=== PATIENT | female | born 1990 | race Two or more races ===

== ENCOUNTER 2018-01-18 21:50 | Emergency (ER) | payer OTHER, BC ==
[2018-01-18 22:51] VITALS: BMI 25.7
[2018-01-18 23:44] LABS: BASO % 0.4 % (0.0-2.0); EOS # 0.2 K/uL (0.0-0.7); EOS % 1.4 % (0.0-4.0); HEMOGLOBIN 11.3 g/dL (11.0-16.0); LYMPH # 1.3 K/uL (1.0-4.3); LYMPH % 12.4 % (20.0-40.0); MEAN CELL VOLUME 81.6 fL (81.0-99.0); MEAN CORPUSCULAR HGB CONC 34.3 g/dL (33.0-37.0); MEAN PLATELET VOLUME 7.7 fL (7.2-11.7); MONO # 0.8 K/uL (0.0-0.8); MONO % 7.2 % (0.0-10.0); NEUT # 8.4 K/uL (1.8-7.0); NEUT % 78.6 % (50.0-75.0); RBC 4.03 Mil/uL (3.80-5.20); RED CELL DISTRIBUTION WIDTH 12.7 % (11.5-14.5); WHITE BLOOD COUNT 10.7 K/uL (4.8-10.8)
[2018-01-18 23:50] LABS: SQUAMOUS EPITHIAL 15 /hpf (0-5); URINE BACTERIA FEW (<OCC); URINE BILIRUBIN NEGATIVE (NEGATIVE); URINE BLOOD 1+ (NEGATIVE); URINE CLARITY Hazy (Clear); URINE COLOR Yellow (YELLOW); URINE GLUCOSE (UA) NORMAL (Normal); URINE LEUKOCYTE ESTERASE 1+ Leu/uL (Negative); URINE PROTEIN NEGATIVE (NEGATIVE)
[2018-01-18 23:59] LABS: ALB/GLOB RATIO 1.2 (1.0-2.1); ALBUMIN 3.5 g/dL (3.5-5.0); ALT/SGPT 29 U/L (9-52); AST/SGOT 23 U/L (14-36); BLOOD UREA NITROGEN 9 mg/dL (7-17); CALCIUM 9.2 mg/dl (8.6-10.4); GFR AFRICAN-AMERICAN > 60; GFR NON-AFRICAN AMERICAN > 60
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
[2018-01-19 13:16] VITALS: BP 110/66; PULSE 78; RESP 18; TEMP 97.6
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
== END 2018-01-19 07:00 | disposition home or self-care (01) ==
LOC: C.EROB 21:50
DX: Z04.1 Encounter for examination and observation following transport accident (principal); O26.892 Other specified pregnancy related conditions, second trimester; Z3A.28 28 weeks gestation of pregnancy

== ENCOUNTER 2018-02-01 14:56 | Emergency (ER) | payer BC, OTHER ==
[2018-02-01 14:13] VITALS: BMI 25.7
[2018-02-01] MEDS ORDERED: Lactated Ringer's 1,000 ML IV ONE (15:32)
[2018-02-01] MEDS ORDERED: Ondansetron Hcl 2 mg/2.5 ml Oral Sol PO STA (15:52)
[2018-02-01 16:01] LABS: BASO % 0.4 % (0.0-2.0); EOS # 0.1 K/uL (0.0-0.7); EOS % 0.8 % (0.0-4.0); HEMOGLOBIN 11.9 g/dL (11.0-16.0); LYMPH % 9.8 % (20.0-40.0); MEAN CELL VOLUME 81.6 fL (81.0-99.0); MEAN CORPUSCULAR HEMOGLOBIN 27.5 pg (27.0-31.0); MEAN CORPUSCULAR HGB CONC 33.7 g/dL (33.0-37.0); MEAN PLATELET VOLUME 7.6 fL (7.2-11.7); MONO # 0.6 K/uL (0.0-0.8); MONO % 5.8 % (0.0-10.0); NEUT # 8.7 K/uL (1.8-7.0); NEUT % 83.2 % (50.0-75.0); NRBC % 0.1 % (0.0-2.0); PLATELET COUNT 207 K/uL (130-400); RBC 4.34 Mil/uL (3.80-5.20); RED CELL DISTRIBUTION WIDTH 12.7 % (11.5-14.5); WHITE BLOOD COUNT 10.5 K/uL (4.8-10.8)
[2018-02-01 16:04] LABS: SQUAMOUS EPITHIAL 4 /hpf (0-5); URINE BACTERIA RARE (<OCC); URINE BILIRUBIN NEGATIVE (NEGATIVE); URINE BLOOD NEGATIVE (NEGATIVE); URINE CLARITY Hazy (Clear); URINE COLOR Yellow (YELLOW); URINE GLUCOSE (UA) NORMAL (Normal); URINE LEUKOCYTE ESTERASE NEG Leu/uL (Negative); URINE PROTEIN NEGATIVE (NEGATIVE); URINE UROBILINOGEN NORMAL mg/dL (0.2-1.0)
[2018-02-01 16:21] LABS: ALB/GLOB RATIO 1.2 (1.0-2.1); ALBUMIN 3.6 g/dL (3.5-5.0); ALT/SGPT 30 U/L (9-52); AST/SGOT 22 U/L (14-36); BLOOD UREA NITROGEN 7 mg/dL (7-17); CALCIUM 8.6 mg/dl (8.6-10.4); GFR AFRICAN-AMERICAN > 60; GFR NON-AFRICAN AMERICAN > 60
[2018-02-01 17:06] LABS: LYMPHOCYTE 8 % (20-40); MONOCYTE 2 % (0-10); NEUTROPHIL 90 % (50-75); PLATELET ESTIMATE NORMAL (NORMAL); TOTAL CELLS COUNTED 100
--- NOTE | 2018-02-01 19:16 | OBHP ---
Datetime: 02/01/2018 19:05 IP Adm Impression: , intrauterine IP Chief Complaint Other: Pelvic Pain IP Admit Plan: Discharge home Admit Comment, IP Provider: 27 yo female G1 with an IUP at 31.5 weeks and presented with c/o of pelv ic pain, not feeling good and vomiting since this AM Denies LOF, Vag bleeding, urinery complaints other than cystitis symptoms Drinks little to no water Labs ordered with US IV of LR hydration, Zofran and Brethine x 3 doses ordered Pelvic Type - PN: Adequate Extremities - PN: Normal Abdomen - PN: Normal Back - PN: Normal Breast - PN: Not Done Lungs - PN: Normal Heart - PN: Normal Thyroid - PN: Normal Neurologic - PN: Normal HEENT - PN: Normal General - PN: Normal Presentation-Admit: Vertex FHR - Baseline A Provider: 120 Membranes, Provider: Intact Contraction Comments Provider: Q3-4 mins Gestation - Est Wks by US: 31.5 EGA AdmitDate IP: 31.5 Vital Signs Provider: Reviewed IP Chief Complaint: Other NICHD Variability Prov Fetus A: Moderate 6-25bpm NICHD Accel Fetus A IP Provider: 15X15 NICHD Decel Fetus A IP Provider: None Dilatation, Provider: 0 Effacement, Provider: 0 Station, Provider: -3 Genitourinary Exam: Normal DTRs - PN: Normal
--- NOTE | 2018-02-01 19:23 | OBDCSUM ---
Datetime: 02/01/2018 19:16 Discharged to, Provider: Home Follow up at, Provider: Clinic Disch Instr Activity: Bedrest Disch Instr Diet: Regular Discharge Instructions, Provider: Routine instructions given Follow up in weeks, Provider: scheduled appointment Disch Activity Restrictions: No exercising; No lifting; No sexual activity; Nothing in vagina - Inte rcourse, tampons, douche Discharge Comment, Provider: IUP at 31.6 weeks contractions/Ressolved Dehydration ressolved Pelvic pain and vomiting ressolved Tracing reactive Discharged home in S_S condition Will follow at her Clinic appointment Discharge Diagnosis Prov Other: Dehydration contractions/ressolved Nausea and Vomiting/ressolved Pelvic pain ressolved Datetime: 02/01/2018 18:54 Discharged to, Provider: Home Follow up at, Provider: clinic Disch Instr Activity: Normal activity Disch Instr Diet: Regular Discharge Time: 02/01/2018 18:54 Disch Referrals: None
[2018-02-01 23:12] VITALS: BP 114/69; PULSE 110; O2SAT 98
== END 2018-02-01 19:11 | disposition home or self-care (01) ==
LOC: C.EROB 14:56
DX: O26.893 Other specified pregnancy related conditions, third trimester (principal); R10.2 Pelvic and perineal pain; Z3A.31 31 weeks gestation of pregnancy
CPT/HCPCS: 80053; 81001; 85025; 96372; 96374; 99283; J3105; J7120

== ENCOUNTER 2018-03-26 10:28 | Emergency (ER) | payer BC, OTHER ==
[2018-03-26 11:21] LABS: SQUAMOUS EPITHIAL 6 /hpf (0-5); URINE BACTERIA RARE (<OCC); URINE BILIRUBIN NEGATIVE (NEGATIVE); URINE BLOOD 2+ (NEGATIVE); URINE CLARITY Clear (Clear); URINE COLOR Yellow (YELLOW); URINE GLUCOSE (UA) NORMAL (Normal); URINE LEUKOCYTE ESTERASE TRACE Leu/uL (Negative); URINE PROTEIN NEGATIVE (NEGATIVE); URINE UROBILINOGEN NORMAL mg/dL (0.2-1.0)
--- NOTE | 2018-03-26 17:17 | OBHP ---
Datetime: 03/26/2018 10:45 IP Adm Impression: Term, intrauterine IP Admit Plan: Observation/Evaluation Admit Comment, IP Provider: 27 yo female G1 with an IUP at 38 2/7 weeks and presented with c/o of bl oody vaginal D/C and irregular contractions very painful. Admits to adequate FM and denies LOF. FHT's reassuring and reactive Uc's Q 3-5 minutes and mild to moderte at the most PMHx. + Asthma and Heart Murmur PSHx Negative Meds PNV, Ventolin Social Hx Denies D/W Dr. Anderson, her OBGYN and advised to have patient walk for a while and reassess Pt aware and agress with POC Pelvic Type - PN: Adequate Extremities - PN: Normal Abdomen - PN: Normal Back - PN: Normal Breast - PN: Not Done Lungs - PN: Normal Heart - PN: Normal Thyroid - PN: Normal Neurologic - PN: Normal HEENT - PN: Normal General - PN: Normal Presentation-Admit: Vertex FHR - Baseline A Provider: 130 Membranes, Provider: Intact Contraction Comments Provider: Q 3-4 mins Gestation - Est Wks by US: 39.2 EGA AdmitDate IP: 39.2 Vital Signs Provider: Reviewed; Within Normal Limits IP Chief Complaint: Uterine contractions; Maternal discomfort; evaluation NICHD Variability Prov Fetus A: Moderate 6-25bpm NICHD Accel Fetus A IP Provider: 10X10 FHR Category Provider Fetus A: Category I NICHD Decel Fetus A IP Provider: None Dilatation, Provider: 2 Effacement, Provider: 80 Station, Provider: -1 Genitourinary Exam: Normal DTRs - PN: Normal
--- NOTE | 2018-03-26 17:25 | OBDCSUM ---
Datetime: 03/26/2018 16:08 Discharged to, Provider: Home Follow up at, Provider: Dr. Anderson Disch Instr Activity: Normal activity Disch Instr Diet: Regular Discharge Diet restrict Prov: none Discharge Instructions, Provider: Routine instructions given Discharge Diagnosis, Provider: False Labor - Undelivered Discharge Time: 03/26/2018 16:10 Follow up in weeks, Provider: scheduled appointment Disch Referrals: None Contraception discussed, Prov: No Discharge Comment, Provider: 27 yo female G1 with an IUP at 38 2/7 weeks and presented with c/o of b loody vaginal D/C and irregular contractions very painful. Admits to adequate FM and denies LOF. FHT's reassuring and reactive Uc's Q 3-5 minutes and mild to moderte at the most Pt ambulated x 2 hours Repeat Moitoring unchanged from before FHT's reactive Cervix unchanged D/W Dr. Anderson again and request to discharge pt home with instructions Advised to increase po water intake Labor precautions reviewed and verbalized understanding D/C home in Stable and Satisfactory codition
[2018-03-26 21:49] VITALS: BP 100/57; PULSE 63; RESP 18
== END 2018-03-26 16:35 | disposition home or self-care (01) ==
LOC: C.EROB 10:28
DX: O47.1 False labor at or after 37 completed weeks of gestation (principal); Z3A.38 38 weeks gestation of pregnancy

== ENCOUNTER 2018-03-27 01:30 | Inpatient (IN) | payer BC ==
[2018-03-27 02:33] VITALS: BMI 28.8
[2018-03-27] MEDS ORDERED: Penicillin G 5 Million Unit Vial IVPB ONE ×2 (02:37→03:17)
[2018-03-27] MEDS ORDERED: Lactated Ringer's 1,000 ML IV ONE (02:37)
[2018-03-27] MEDS ORDERED: Lactated Ringer's 1,000 ML IV SCH (02:45)
[2018-03-27 03:05] LABS: BASO # 0.1 K/uL (0.0-0.2); BASO % 0.9 % (0.0-2.0); EOS # 0.1 K/uL (0.0-0.7); EOS % 0.7 % (0.0-4.0); HEMOGLOBIN 13.5 g/dL (11.0-16.0); LYMPH # 1.7 K/uL (1.0-4.3); LYMPH % 15.5 % (20.0-40.0); MEAN CELL VOLUME 81.9 fL (81.0-99.0); MEAN CORPUSCULAR HEMOGLOBIN 27.5 pg (27.0-31.0); MEAN CORPUSCULAR HGB CONC 33.6 g/dL (33.0-37.0); MEAN PLATELET VOLUME 8.1 fL (7.2-11.7); MONO # 0.6 K/uL (0.0-0.8); MONO % 5.3 % (0.0-10.0); NEUT # 8.4 K/uL (1.8-7.0); NEUT % 77.6 % (50.0-75.0); NRBC % 0.1 % (0.0-2.0); RBC 4.89 Mil/uL (3.80-5.20); RED CELL DISTRIBUTION WIDTH 13.5 % (11.5-14.5); WHITE BLOOD COUNT 10.8 K/uL (4.8-10.8)
[2018-03-27 03:20] LABS: CALCIUM 9.1 mg/dl (8.6-10.4); GFR NON-AFRICAN AMERICAN > 60; URIC ACID 5.5 mg/dL (2.2-7.5)
[2018-03-27 03:23] LABS: ALB/GLOB RATIO 1.2 (1.0-2.1); ALBUMIN 4.2 g/dL (3.5-5.0); ALT/SGPT 20 U/L (9-52); AST/SGOT 49 U/L (14-36); BLOOD UREA NITROGEN 13 mg/dL (7-17)
[2018-03-27 03:29] LABS: SQUAMOUS EPITHIAL 91 /hpf (0-5); URINE BILIRUBIN NEGATIVE (NEGATIVE); URINE BLOOD 3+ (NEGATIVE); URINE COLOR Red (YELLOW); URINE GLUCOSE (UA) NORMAL (Normal); URINE LEUKOCYTE ESTERASE 2+ Leu/uL (Negative); URINE PROTEIN 2+ mg/dL (NEGATIVE); URINE UROBILINOGEN NORMAL mg/dL (0.2-1.0)
[2018-03-27 03:36] LABS: URINE CLARITY Turbid (Clear)
[2018-03-27] MEDS ORDERED: Bupivacaine HCl/FentaNYL Cit 100 ML EPI ONE (03:38)
[2018-03-27 03:48] LABS: HEPATITIS B SURFACE AG Negative (NEGATIVE)
[2018-03-27] MEDS ORDERED: Oxycodone/Acetaminophen 5/325 mg Tab PO PRN (09:23)
[2018-03-27] MEDS ORDERED: Benzocaine/Menthol 20%-0.5% Topical Spray (60 ml) TOP PRN (09:23)
[2018-03-27] MEDS ORDERED: Oxytocin 30 UNIT 500 ML IV ONE (09:23)
--- NOTE | 2018-03-27 09:31 | OBDS ---
MATERNAL INFORMATION Estimated Blood Loss (ml): 200 Maternal Complications: None Provider Comments: without complications. Baby delivered in PREM presentation. No nuchal. Cord cl amped x2 and cut. Infant handed over to mother. 1st degree laceration noted and repaired. Placenta de livered spontaneously and noted to be intact. All laps and instrument counts were correct. Patient to lerated procedure well. LABOR SUMMARY EDC: 03/31/2018 00:00 No. Babies in Womb: 1 Attempted: No Labor Anesthesia: Epidural LABOR INFORMATION Reason for Induction: Not Applicable Onset of Labor: 03/27/2018 00:45 Group B Beta Strep: Positive Steroids Given: None Reason Steroids Not Administered: Not Applicable MEMBRANES Membranes Rupture Method: Spontaneous Rupture of Membranes: 03/27/2018 00:45 Length of Rupture (hrs): 8.35 Amniotic Fluid Color: Clear Amniotic Fluid Amount: Moderate Amniotic Fluid Odor: Normal VAGINAL DELIVERY Episiotomy: None Laceration Extension: First Degree Laceration Type: Perineal Laceration Repair: Yes Laceration Repair Note: 1st degree laceration repaired with 2-[address]-1. No complications. He mostatic. Sponge Count Correct: Yes Sharps Count Correct: Yes BABY A INFORMATION Delivery Date/Time: 03/27/2018 09:06 Method of Delivery: Vaginal Born in Route : No : N/A Forceps: N/A Vacuum Extraction: N/A Shoulder Dystocia : No SHOULDER DYSTOCIA BABY A Delivery Date/Time: 03/27/2018 09:06 INFORMATION BABY A Gestational Age at Delivery: 39.3 Gestational Status: Term Infant Outcome : Liveborn Condition : Stable Infant Sex: Female IDENTIFICATION/MEDS BABY A ID Band Number: [id number] ID Band Location: Left Leg; Left Arm Sensor Applied: Yes Sensor Number: [id number] Sensor Location : Cord Clamp Vitamin K Given : Not Given Erythromycin Given: Not Given WEIGHT/LENGTH BABY A Birthweight (gms): 2895 Infant Weight (lb): 6 Weight (oz): 6 Length Inches: 19.00 Length cms: 48.3
[2018-03-27] MEDS ORDERED: Oxytocin 30 UNIT 30 UNITS/500 ML BAG IV ONE (11:00)
[2018-03-28] MEDS ORDERED: Calcium Carbonate 500 mg Chewable Antacid Tab PO SCH (02:21)
[2018-03-28] MEDS ORDERED: Calcium Carbonate 500 mg Chewable Antacid Tab PO PRN (05:51)
[2018-03-28 08:13] LABS: PROTHROMBIN TIME 10.9 SECONDS (9.7-12.2)
[2018-03-28 08:14] VITALS: RESP 20
[2018-03-28 08:14] LABS: BASO % 0.2 % (0.0-2.0); EOS # 0.1 K/uL (0.0-0.7); EOS % 0.7 % (0.0-4.0); LYMPH # 1.3 K/uL (1.0-4.3); LYMPH % 13.3 % (20.0-40.0); MEAN CELL VOLUME 81.5 fL (81.0-99.0); MEAN CORPUSCULAR HEMOGLOBIN 27.7 pg (27.0-31.0); MONO # 0.7 K/uL (0.0-0.8); MONO % 6.7 % (0.0-10.0); NEUT # 7.8 K/uL (1.8-7.0); NEUT % 79.1 % (50.0-75.0); RBC 4.16 Mil/uL (3.80-5.20); RED CELL DISTRIBUTION WIDTH 13.6 % (11.5-14.5); WHITE BLOOD COUNT 9.9 K/uL (4.8-10.8)
[2018-03-28 08:17] LABS: HEMOGLOBIN 11.5 g/dL (11.0-16.0)
--- NOTE | 2018-03-28 17:42 | OBPPN ---
Datetime: 03/28/2018 17:40 PP Pain Prov: Within normal limits PP Nausea Prov: Denies PP Flatus Prov: Yes PP Breasts Prov: Normal PP Heart Prov: Normal PP Lungs Prov: Normal PP Abdomen/Uterus Prov: Normal PP Lochia Prov: Normal PP Vulva/Perineum Prov: Normal PP CVA Tenderness Prov: Normal PP Extremities Prov: Normal PP Impression Prov: Normal progression PP Plan Prov: Continue present management PP Progress Note Prov: normal , no mastitis, breast feeding with guidance if everything is stable for discharge tomorrow Vital Signs Provider PP: Reviewed
--- NOTE | 2018-03-28 17:44 | OBDCSUM ---
Datetime: 03/28/2018 17:42 Discharged to, Provider: Home Follow up at, Provider: mellissa Gordon Instr Activity: Normal activity Disch Instr Diet: Regular Discharge Instructions, Provider: Routine instructions given Discharge Diagnosis, Provider: Term Delivered Follow up in weeks, Provider: 1 week Disch Referrals: None Contraception discussed, Prov: Yes Disch Activity Restrictions: No exercising; No sexual activity; Nothing in vagina - Pierz, charisma gtz
[2018-03-29 07:49] VITALS: BP 119/79; PULSE 73; O2SAT 97
[2018-03-29 19:07] VITALS: TEMP 97.6
== END 2018-03-29 15:06 | disposition home or self-care (01) | DRG 775 ==
LOC: C.EROB 01:30 → C.4D 02:00 → C.4M 12:35
PROVIDERS: ADMIT Obstetrics & Gynecology; ATTEND Obstetrics & Gynecology
PROC: 10E0XZZ Delivery of Products of Conception, External Approach (ICD-10-PCS; principal; 2018-03-27)
PROC: 0HQ9XZZ Repair Perineum Skin, External Approach (ICD-10-PCS; 2018-03-27)
DX: O99.824 Streptococcus B carrier state complicating childbirth (principal); Z3A.39 39 weeks gestation of pregnancy; O70.0 First degree perineal laceration during delivery; Z37.0 Single live birth